=== PATIENT | female | born 1990 | race Caucasian/White ===

== ENCOUNTER 2024-06-11 21:30 | Observation (INO) | payer OTHER ==
[~2024-06-11] VITALS: Ht 167.6 cm; Wt 79.4 kg
[2024-06-11 21:59] LABS: Urine Bacteria FEW /hpf (None Seen); Urine Blood TRACE /uL (Negative); Urine Budding Yeast MODERATE /hpf (None Seen); Urine Clarity Turbid (Clear); Urine Color Light-Yellow (Yellow); Urine Protein, UAD 1+ (Negative); Urine Specific Gravity 1.013 (1.001-1.035); Urine Urobilinogen Normal (Negative); Urine WBC 161 /hpf (0 - 5); Urine pH 6.5 (5.0-9.0)
[2024-06-11] MEDS ORDERED: NITR-87 PO (23:35)
[2024-06-11] MEDS: NITROFURANTOIN 100 mg CAP PO ONE (23:57)
[2024-06-12 00:11] LABS: Vaginal Bacteria Moderate; Vaginal Clue Cells Moderate; Vaginal Epithelial Cells Many; Vaginal Trichomonas Not Present
[2024-06-12] MEDS ORDERED: MET075VC VG (00:28)
== END 2024-06-12 00:44 | disposition home or self-care (01) ==
LOC: LDRP 21:30
PROVIDERS: ADMIT Obstetrics & Gynecology; ATTEND Obstetrics & Gynecology
DX: O23.43 Unspecified infection of urinary tract in pregnancy, third trimester (principal); O23.593 Infection of other part of genital tract in pregnancy, third trimester; B96.89 Other specified bacterial agents as the cause of diseases classified elsewhere; O26.893 Other specified pregnancy related conditions, third trimester; R07.89 Other chest pain; R11.0 Nausea; R10.9 Unspecified abdominal pain; O99.891 Other specified diseases and conditions complicating pregnancy; M25.552 Pain in left hip; M25.551 Pain in right hip; M54.9 Dorsalgia, unspecified; Z3A.34 34 weeks gestation of pregnancy
CPT/HCPCS: 59025; 76815; 81001; 87086; 87210; 94760; G0378